=== PATIENT | female | born 1960 | race Caucasian/White ===

== ENCOUNTER 2017-04-23 09:56 | Observation (INO) | payer OTHER ==
[2017-04-23 10:28] LABS: ADD MAN DIFF? NO
[2017-04-23 10:40] LABS: BASOPHILS % 0.5 % (0.0-2.0); EOSINOPHILS # 0.2 10^3/ul (0.0-0.5); EOSINOPHILS % 2.3 % (0.0-7.0); HEMATOCRIT 37.1 % (37.0-47.0); HEMOGLOBIN 12.1 g/dl (12.0-16.0); LYMPHOCYTES # 2.4 10^3/ul (0.8-2.9); LYMPHOCYTES % 28.4 % (15.0-51.0); MEAN CORPUSCULAR HEMOGLOBIN 27.1 pg (29.0-33.0); MEAN CORPUSCULAR HGB CONC 32.6 g/dl (32.0-37.0); MEAN CORPUSCULAR VOLUME 83.2 fl (82.0-101.0); MEAN PLATELET VOLUME 11.1 fl (7.4-10.4); MONOCYTE # 0.5 10^3/ul (0.3-0.9); MONOCYTES % 6.2 % (0.0-11.0); NEUTROPHIL # 5.2 10^3/ul (1.6-7.5); NEUTROPHILS % 61.8 % (39.0-77.0); PLATELET COUNT 283 10^3/UL (140-415); RED BLOOD COUNT 4.46 10^6/ul (4.20-5.40); RED CELL DISTRIBUTION WIDTH 15.6 % (11.5-14.5)
[2017-04-23 10:40] LABS: WHITE BLOOD COUNT 8.3 10^3/ul (4.8-10.8)
[2017-04-23 11:00] LABS: ANION GAP 16 (8-16); BLOOD UREA NITROGEN 11 mg/dl (7-20); CALCIUM 9.3 mg/dl (8.4-10.2); CARBON DIOXIDE 23 mmol/L (21-31); CHLORIDE 105 mmol/L (97-110); CREATININE 0.49 mg/dl (0.44-1.00); GLUCOSE 215 mg/dl (70-220); POTASSIUM 4.3 mmol/L (3.5-5.1); SODIUM 140 mmol/L (135-144)
[2017-04-23 11:14] LABS: TROPONIN-I < 0.012 ng/ml (0.00-0.12)
[2017-04-23] MEDS ORDERED: ONDANSETRON 4 MG INJ IV ×2 (15:00→15:30)
[2017-04-23] MEDS ORDERED: ZOLPIDEM 5 MG TAB PO (15:30)
[2017-04-23] MEDS ORDERED: morphine 2 MG INJ IV (15:30)
[2017-04-23] MEDS ORDERED: ACETAMINOPHEN 325 MG TAB PO (15:30)
[2017-04-23] MEDS ORDERED: HYDROCODONE/APAP (5/325) TAB PO (15:30)
[2017-04-23] MEDS: DOCUSATE SODIUM 100 MG CAP PO (15:30)
[2017-04-23] MEDS ORDERED: NITROGLYCERIN (SL) 0.4 MG TAB SL (15:30)
[2017-04-23] MEDS ORDERED: GLUCOSE GEL 15 GRAM TUBE PO ×2 (16:00)
[2017-04-23] MEDS ORDERED: GLUCOSE GEL 15 GRAM TUBE BUCCAL (16:00)
[2017-04-23] MEDS ORDERED: morphine LIQ (10 MG/5 ML) CUP PO (16:00)
[2017-04-23] MEDS ORDERED: DEXTROSE 50% 50 ML SYRINGE IV ×2 (16:00)
[2017-04-23] MEDS ORDERED: GLUCAGON 1 MG INJ IM (16:00)
[2017-04-23] MEDS: ACETAMINOPHEN 325 MG TAB PO (16:27)
[2017-04-23 17:38] LABS: CREATINE KINASE 69 IU/L (23-200)
[2017-04-23 17:51] LABS: CK INDEX 0.6; CK-MB 0.38 ng/ml (0.0-2.4)
[2017-04-23 17:54] LABS: TROPONIN-I < 0.012 ng/ml (0.00-0.12)
[2017-04-23] MEDS: metFORMIN 500 MG TAB PO (21:00)
[2017-04-23] MEDS: FAMOTIDINE 20 MG TAB PO (21:00)
[2017-04-23 22:41] LABS: CREATINE KINASE 55 IU/L (23-200)
[2017-04-23 22:55] LABS: CK INDEX 0.8; CK-MB 0.43 ng/ml (0.0-2.4)
[2017-04-23 22:56] LABS: TROPONIN-I < 0.012 ng/ml (0.00-0.12)
[2017-04-24] MEDS: DOCUSATE SODIUM 100 MG CAP PO (03:22)
[2017-04-24 06:52] LABS: ADD MAN DIFF? NO
[2017-04-24 06:54] LABS: BASOPHILS % 0.5 % (0.0-2.0); EOSINOPHILS # 0.2 10^3/ul (0.0-0.5); EOSINOPHILS % 2.3 % (0.0-7.0); HEMATOCRIT 34.9 % (37.0-47.0); HEMOGLOBIN 11.4 g/dl (12.0-16.0); LYMPHOCYTES # 2.9 10^3/ul (0.8-2.9); LYMPHOCYTES % 34.5 % (15.0-51.0); MEAN CORPUSCULAR HEMOGLOBIN 27.3 pg (29.0-33.0); MEAN CORPUSCULAR HGB CONC 32.7 g/dl (32.0-37.0); MEAN CORPUSCULAR VOLUME 83.5 fl (82.0-101.0); MEAN PLATELET VOLUME 10.7 fl (7.4-10.4); MONOCYTE # 0.5 10^3/ul (0.3-0.9); MONOCYTES % 6.4 % (0.0-11.0); NEUTROPHIL # 4.6 10^3/ul (1.6-7.5); NEUTROPHILS % 55.8 % (39.0-77.0); PLATELET COUNT 272 10^3/UL (140-415); RED BLOOD COUNT 4.18 10^6/ul (4.20-5.40); RED CELL DISTRIBUTION WIDTH 15.8 % (11.5-14.5)
[2017-04-24 06:54] LABS: WHITE BLOOD COUNT 8.3 10^3/ul (4.8-10.8)
[2017-04-24 07:12] LABS: ALANINE AMINOTRANSFERASE 41 IU/L (13-69); ALBUMIN 3.8 g/dl (3.3-4.9); ALBUMIN/GLOBULIN RATIO 1.18; ALKALINE PHOSPHATASE 78 IU/L (42-121); ANION GAP 19 (8-16); ASPARTATE AMINO TRANSFERASE 27 IU/L (15-46); BILIRUBIN,INDIRECT 0.1 mg/dl (0-1.1); BILIRUBIN,TOTAL 0.1 mg/dl (0.2-1.3); BLOOD UREA NITROGEN 10 mg/dl (7-20); CALCIUM 9.1 mg/dl (8.4-10.2); CARBON DIOXIDE 26 mmol/L (21-31); CHLORIDE 106 mmol/L (97-110); GLUCOSE 151 mg/dl (70-220); HDL CHOLESTEROL 29 mg/dl (37-92); MAGNESIUM 1.7 mg/dl (1.7-2.5); SODIUM 147 mmol/L (135-144); TRIGLYCERIDES 147 mg/dl (0-149)
[2017-04-24 07:57] LABS: CHOL/HDL RATIO 6.1 RATIO; LDL CHOLESTEROL,CALCULATED 120 mg/dl
[2017-04-24] MEDS: LINAGLIPTIN 5 MG TABLET PO (08:16)
[2017-04-24] MEDS: ASPIRIN 81 MG TAB PO (08:16)
[2017-04-24] MEDS: FAMOTIDINE 20 MG TAB PO (08:16)
[2017-04-24 08:17] LABS: CHOLESTEROL 178 mg/dl (100-200)
[2017-04-24] MEDS: ENOXAPARIN 40 MG/0.4 ML SYG SC (08:19)
[2017-04-24] MEDS: metFORMIN 500 MG TAB PO (09:59)
[2017-04-24] MEDS: AMLODIPINE 5 MG TAB PO (09:59)
[2017-04-24] MEDS: ACETAMINOPHEN 325 MG TAB PO (11:38)
== END 2017-04-24 15:29 | disposition home or self-care (01) ==
LOC: E/R 09:56 → MS3 15:01
DX: R07.89 Other chest pain (principal); I16.0 Hypertensive urgency; I10 Essential (primary) hypertension; E11.9 Type 2 diabetes mellitus without complications; Z79.84 Long term (current) use of oral hypoglycemic drugs; M19.90 Unspecified osteoarthritis, unspecified site; E78.5 Hyperlipidemia, unspecified; E66.9 Obesity, unspecified; Z68.42 Body mass index [BMI] 45.0-49.9, adult; Z82.49 Family history of ischemic heart disease and other diseases of the circulatory system
CPT/HCPCS: 36415; 71045; 80048; 80053; 80061; 82550; 82553; 82962; 83036; 83735; 84443; 84484; 85025; 93005; 93306; 99285-25